=== PATIENT | female | born 1985 | race African-American/Black ===

== ENCOUNTER 2018-08-02 15:02 | Emergency (ER) | payer MEDICAID ==
[~2018-08-02] VITALS: Ht 170.2 cm; Wt 59.1 kg
[2018-08-02] MEDS ORDERED: CEPHALEXIN MONOHYDRATE 500 MG CAPSULE PO ONE (16:15)
[2018-08-02] MEDS ORDERED: HydrOXYzine HCL 10 MG TABLET PO ONE (16:15)
[2018-08-02 16:54] VITALS: BP 133/90
== END 2018-08-02 17:21 | disposition home or self-care (01) ==
LOC: EMS 15:03
DX: L50.9 Urticaria, unspecified (principal); B35.0 Tinea barbae and tinea capitis; L03.811 Cellulitis of head [any part, except face]; J45.909 Unspecified asthma, uncomplicated; Z59.0 Homelessness